=== PATIENT | male | born 1940 | race Caucasian/White ===

== ENCOUNTER 2016-09-22 10:19 | Emergency (ER) | payer MEDICARE, OTHER ==
[~2016-09-22] VITALS: Ht 172.7 cm; Wt 86.0 kg
[2016-09-22 11:41] LABS: BASOPHILS % (AUTO) 1 % (0-2); EOSINOPHILS # (AUTO) 0.1 10^3uL; EOSINOPHILS % (AUTO) 1 % (0-4); LYMPHOCYTES # (AUTO) 0.6 X10^3; MEAN CORPUSCULAR VOLUME 91 FL (80-100); MEAN PLATELET VOLUME 9.5 FL (6.0-9.5); MONOCYTES # (AUTO) 0.5 X10^3; MONOCYTES % (AUTO) 12 % (3-11); NEUTROPHILS % (AUTO) 71 % (51-67); PLATELET COUNT 104 10^3uL (150-450); WHITE BLOOD COUNT 4.15 10^3uL (4.0-11.0)
[2016-09-22 11:42] LABS: MEAN CORPUSCULAR HEMOGLOBIN 33.5 PG (26.0-34.0); MEAN CORPUSCULAR HGB CONC 36.7 g/dL (31.0-37.0)
[2016-09-22 11:49] LABS: BILIRUBIN,URINE Negative (Negative); CLARITY,URINE Clear; COLOR,URINE Yellow; GLUCOSE, URINE (UA) Negative (Negative); LEUKOCYTE ESTERASE ,URINE Negative (Negative); PH,URINE 5.5 (5.0 - 8.0); UROBILINOGEN,URINE 0.2 mg/dL (0.2-1.0)
[2016-09-22 11:56] LABS: ALBUMIN 4.1 g/dL (3.4-5.0); ALKALINE PHOSPHATASE 79 U/L (38-126); ANION GAP 12.9 MEQ/L (3-15); BUN/CREATININE RATIO 23 (10-20); CALCULATED IONIZED CALCIUM 3.9 mg/dL (3.8-4.6); CREATINE KINASE 107 U/L (55-170); TOTAL PROTEIN 7.6 g/dL (6.4-8.5)
[2016-09-22 12:00] LABS: URINE CENTRIFUGED VOLUME 12 mL
--- NOTE | 2016-09-22 13:03 | NUR ---
DR PURVIS TALKS WITH DR MELENDREZ RE PT. CL
[2016-09-22 13:16] VITALS: BP 116/69
--- NOTE | 2016-09-22 13:19 | NUR ---
DR PURVIS TALKS WITH DR ORLANDO NORIEGA PT. CL
== END 2016-09-22 13:46 | disposition home or self-care (01) ==
LOC: ED 10:21
DX: N41.9 Inflammatory disease of prostate, unspecified (principal); R31.29 Other microscopic hematuria; I45.2 Bifascicular block; I45.19 Other right bundle-branch block; I44.4 Left anterior fascicular block; N40.0 Benign prostatic hyperplasia without lower urinary tract symptoms; I10 Essential (primary) hypertension
CPT/HCPCS: 36415; 51798; 70450; 71010; 80053; 81003; 81015; 82550; 82553; 83880; 84443; 84484; 85025; 85610; 86140; 93005; 93010; 99284; 99285

== ENCOUNTER → 2016-09-24 | Outpatient (CLI) | payer MEDICARE, OTHER | LOC: RAD 09:09 | PROVIDERS: ATTEND Internal Medicine | DX: G40.309 Generalized idiopathic epilepsy and epileptic syndromes, not intractable, without status epilepticus (principal); R53.1 Weakness; I69.398 Other sequelae of cerebral infarction; R55 Syncope and collapse | CPT/HCPCS: 70553; A9579 ==